=== PATIENT | female | born 1985 | race African-American/Black ===

== ENCOUNTER 2020-12-09 16:27 | Emergency (ER) | payer OTHER, SELFPAY ==
[2020-12-09 16:33] VITALS: BP 146/97; PULSE 91; RESP 19; TEMP 36.9; O2SAT 100
--- NOTE | 2020-12-09 16:36 | ED.GENADULT ---
HPI - General Adult General Chief complaint: Unspecified <Kwesi Tolliver PA-C - Last Filed: 12/09/20 16:41> Stated complaint: left breast pain x 2 days <Kwesi Tolliver PA-C - Last Filed: 12/09/20 16:41> Time Seen by Provider: 12/09/20 16:30 <Kwesi Tolliver PA-C - Last Filed: 12/09/20 16:41> Source: patient and RN notes reviewed <Kwesi Tolliver PA-C - Last Filed: 12/09/20 16:41> Mode of arrival: ambulatory <Kwesi Tolliver PA-C - Last Filed: 12/09/20 16:41> Limitations: no limitations <Kwesi Tolliver PA-C - Last Filed: 12/09/20 16:41> History of Present Illness HPI narrative: Patient is a 35-year-old female who presents to emergency department for evaluation of left breast pain noting aching pain worse with palpation that is from the lateral aspect of the left breast up across the left chest. Patient notes that the symptoms have been present for 5 days. Patient denies injury or trauma redness swelling wounds URI symptoms dyspnea or other complaints. Patient had a similar occurrence in the past followed with gynecology and was told that it could likely be related to caffeine intake. Patient has not followed up since. Patient on arrival is in the room in no distress resting comfortably <Kwesi Tolliver PA-C - Last Filed: 12/09/20 16:41> Related Data Allergies/adverse reactions: Allergies Allergy/AdvReac Type Severity Reaction Status Date / Time No Known Allergies Allergy Verified 12/09/20 16:32 <Kwesi Tolliver PA-C - Last Filed: 12/09/20 16:41> Review of Systems Review of Systems: All systems reviewed & are unremarkable except as noted in HPI and below <Kwesi Tolliver PA-C - Last Filed: 12/09/20 16:41> PMFSH Social History Social History: Social History (Updated 12/09/20 @ 16:37 by Kwesi Tolliver PA-C) Smoking status: Never smoker <Kwesi Tolliver PA-C - Last Filed: 12/09/20 16:41> Exam Narrative: Exam Narrative: GENERAL: Well-appearing, well-nourished, and in no acute distress. HEAD: Normocephalic, atraumatic. EYES: PERRLA and EOMI. ENT: Nares clear, no rhinorrhea or epistaxis. Mucous membranes moist. CHEST: Clear to auscultation. No respiratory distress. No wheezes rales or rhonchi HEART: Regular rate and rhythm. No murmur heard. Normal peripheral pulses. EXTREMITIES: Normal range of motion. No edema. Tenderness to the left breast laterally and up across the left chest no deformities noted no lymphadenopathy or tenderness in the left armpit the right chest and breast are nontender. SKIN: Warm, dry, no rash. NEURO: No focal deficits. Alert and oriented x3. PSYCH: Normal mood and affect. <ANDREW Rome Last Filed: 12/09/20 16:41> Course Course Emergency Course: Patient will be referred to gynecology for discussion of mammogram or further reevaluation of her breast pain patient agrees with this plan and has been given reasons to return and agrees to do so if symptoms worsen <ANDREW Rome Last Filed: 12/09/20 16:41> Vital Signs Vital signs: Vital Signs Temperature 98.4 F 12/09/20 16:33 Pulse Rate 91 12/09/20 16:33 Respiratory Rate 19 12/09/20 16:33 Blood Pressure 146/97 H 12/09/20 16:33 Pulse Oximetry 100 12/09/20 16:33 Temperature 98.4 F 12/09/20 16:38 Pulse Rate 91 12/09/20 16:38 Respiratory Rate 19 12/09/20 16:38 Blood Pressure 146/97 H 12/09/20 16:38 Pulse Oximetry 100 12/09/20 16:38 <ANDREW Rome Last Filed: 12/09/20 16:41> Vital Signs Temperature 98.4 F 12/09/20 16:33 Pulse Rate 91 12/09/20 16:33 Respiratory Rate 19 12/09/20 16:33 Blood Pressure 146/97 H 12/09/20 16:33 Pulse Oximetry 100 12/09/20 16:33 Temperature 98.4 F 12/09/20 16:38 Pulse Rate 91 12/09/20 16:38 Respiratory Rate 19 12/09/20 16:38 Blood Pressure 146/97 H 12/09/20 16:38 Pulse Oximetry 100 12/09/20 16:38 <Jenn Tucker
[2020-12-09 16:38] VITALS: BP 146/97; PULSE 91; RESP 19; TEMP 36.9; O2SAT 100
[2020-12-09] MEDS: IBUPROFEN 600 MG TABLET PO (16:46)
== END 2020-12-09 17:11 | disposition home or self-care (01) ==
PROVIDERS: Emergency Provider General Practice; PCP Emergency Medicine
DX: N64.4 Mastodynia (principal)
CPT/HCPCS: 99283; A9270

== ENCOUNTER 2021-07-07 08:20 | Emergency (ER) | payer OTHER, SELFPAY ==
[2021-07-07 08:24] VITALS: BP 126/63; PULSE 78; RESP 14; TEMP 36.4; O2SAT 100
[2021-07-07 09:36] LABS: Add Urine Microscopic? YES; Appearance Urine Cloudy (Clear); Bacteria Urine 1+ /hpf; Bilirubin Urine Negative (Negative); Blood Urine 1+ (Negative); Color Urine Yellow (Yellow); Glucose Urine UA Negative (Negative); Ketones Urine Negative (Negative); Leukocyte Esterase Ur 2+ LEU/UL (Negative); Mucus Urine Rare /lpf; Nitrate Urine Positive (Negative); Protein Urine Negative (Negative); Specific Grav Ur 1.019 (1.001-1.035); Squamous Epithelial Cell Urine Many /hpf (Few); Urobilinogen Urine Negative mg/dL (<2.0); WBC Urine >75 /hpf
--- NOTE | 2021-07-07 10:07 | ED.FEMALEGU ---
HPI - Female Genitourinary General Chief complaint: Urogenital-Female Stated complaint: Kidney infection Time Seen by Provider: 07/07/21 08:30 History of Present Illness HPI Narrative: Patient is a 36-year-old female who presents ER with dysuria. Ongoing for the last 7 days. Associated with foul-smelling urine. Reports pain started referring to her right low back today. No fevers or chills or sweats. No nausea or vomiting. Has not taken any medication. Related Data Allergies Allergy/AdvReac Type Severity Reaction Status Date / Time No Known Allergies Allergy Verified 07/07/21 08:26 Review of Systems Constitutional: Constitutional: Denies chills Comments: Afebrile Gastrointestinal: Gastrointestinal: Denies abdominal pain, Denies nausea and Denies vomiting Genitourinary: Genitourinary: Denies abnormal vaginal bleeding, Denies hematuria, Reports nocturia, Reports dysuria, Reports flank pain, Denies urinary incontinence and Denies vaginal discharge Musculoskeletal: Musculoskeletal: Reports back pain and Reports muscle cramps PMFSH Past Medical History Medical History (Updated 07/07/21 @ 17:40 by Ruy Plata MD) Healthy female adult Surgical History Surgical History (Updated 07/07/21 @ 17:40 by Ruy Plata MD) No history of previous surgery Social History Social History (Updated 12/09/20 @ 16:37 by Kwesi Tolliver PA-C) Smoking status: Never smoker Exam Narrative: GENERAL: Well-appearing, well-nourished, and in no acute distress. HEAD: Normocephalic, atraumatic. CHEST: Clear to auscultation. No respiratory distress. HEART: Regular rate and rhythm. Normal peripheral pulses. Back: No CVA tenderness. No midline tenderness of T/L-spine. There is very lateral lower lumbar tenderness near the iliac crest on the right side. EXTREMITIES: Normal range of motion. No edema. NEURO: Alert and oriented x3. PSYCH: Normal mood and affect. Course Course Emergency Course: Discharge home with ciprofloxacin. Discussed return precautions. Vital Signs Vital signs: Vital Signs Temperature 97.6 F 07/07/21 08:24 Pulse Rate 78 07/07/21 08:24 Respiratory Rate 14 07/07/21 08:24 Blood Pressure 126/63 07/07/21 08:24 Pulse Oximetry 100 07/07/21 08:24 Temperature 97.6 F 07/07/21 08:24 Pulse Rate 78 07/07/21 08:24 Respiratory Rate 14 07/07/21 08:24 Blood Pressure 126/63 07/07/21 08:24 Pulse Oximetry 100 07/07/21 08:24 MDM - Female Genitourinary Lab Data Labs: Lab Results 07/07/21 Range/Units 09:12 Urine Color Yellow (Yellow) Urine Appearance Cloudy H (Clear) Urine pH 6.0 (5.0-9.0) Ur Specific [place] 1.019 (1.001-1.035) Urine Protein Negative (Negative) mg/dL Urine Glucose (UA) Negative (Negative) mg/dL Urine Ketones Negative (Negative) mg/dL Ur Blood (Man) 1+ H (Negative) Urine Nitrate Positive H (Negative) Urine Bilirubin Negative (Negative) Urine Urobilinogen Negative (<2.0) mg/dL Leukocyte Esterase Rfl 2+ H (Negative) HÉCTOR/UL Urine RBC 11-20 H (0-2) /hpf Urine WBC >75 H /hpf Ur Squamous Epith Cells Many H (Few) /hpf Urine Bacteria 1+ H /hpf Hyaline Casts 1-2 (None) /lpf Urine Mucus Rare /lpf Discharge Plan Discharge Clinical Impression: Urinary tract infection Patient Disposition: Home, Self-Care Condition: Stable Instructions: Antibiotic Form, Urinary Tract Infection in Women (ED) Additional Instructions: Take ciprofloxacin to help with your infection. Return to the ER if you develop fever over 100.4 ?F, you have worsening back pain, you have severe abdominal pain, or you cannot keep down food/water/medication. Prescriptions: New hydrocodone-acetaminophen 5-325 mg tablet 1 tablet PO Q6H PRN (Reason: pain) Qty: 10 RF: 0 ciprofloxacin HCl [Cipro] 500 mg tablet 500 mg PO Q12H Qty: 20 RF: 0 No Action ibuprofen [IBU] 600 mg tablet 600 mg PO QID PRN (R
== END 2021-07-07 10:18 | disposition home or self-care (01) ==
PROVIDERS: Emergency Provider Emergency Medicine
DX: N39.0 Urinary tract infection, site not specified (principal)
CPT/HCPCS: 81001; 87077; 87086; 87088; 87186; 99283